=== PATIENT | female | born 1990 | race Caucasian/White ===

== ENCOUNTER 2023-05-20 17:31 | Emergency (ER) | payer OTHER, SELFPAY ==
[2023-05-20 17:48] VITALS: BP 137/82
[2023-05-20 18:17] LABS: % Basophils 0.7 % (0-2); % Eosinophils 3.7 % (0-6); % Immature Granulocytes 0.2 % (0-0.5); % Lymphocytes 27.6 % (20.5-51.1); % Neutrophils 59.8 % (42.2-75.2); Absolute Basophils 0.1 10^3/uL (0-0.2); Absolute Eosinophils 0.4 10^3/uL (0-0.7); Absolute Lymphocytes 2.6 10^3/uL (1.2-3.4); Absolute Monocytes 0.8 10^3/uL (0.1-0.6); Absolute Neutrophils 5.7 10^3/uL (1.4-6.5); Hemoglobin 12.2 g/dL (12.0-16.0); Mean Corp Hgb Conc. 33.9 g/dL (33.0-37.0); Mean Corpuscular Hgb 27.9 pg (27.0-31.0); Mean Corpuscular Volume 82.4 fL (81.0-99.0); Mean Platelet Volume 13.1 fL (7.4-10.4); Nucleated Red Blood Cells % 0 %; Platelet Count 200 10^3/uL (130-400); Red Blood Cell Count 4.37 10^6/uL (4.20-5.40); Red Cell Dist. Width 12.7 % (11.5-14.5); White Blood Cell Count 9.5 10^3/uL (4.8-10.8)
[2023-05-20 18:23] LABS: ALT (SGPT) 44 U/L (0-35); AST (SGOT) 32 U/L (14-36); Albumin 4.5 g/dl (3.5-5.0); Alkaline Phosphatase 82 U/L (38-126); Blood Urea Nitrogen 13 mg/dl (7-17); Calcium 9.6 mg/dl (8.4-10.2); Carbon Dioxide 26 mmol/L (22-30); Chloride 104 mmol/L (98-107); Glucose 99 mg/dl (70-99); Lipase 159 U/L (23-300); Potassium 4.2 mmol/L (3.5-5.1); Sodium 136 mmol/L (135-145); Total Bilirubin 0.4 mg/dl (0.2-1.3); Total Protein 7.7 g/dl (6.3-8.2); eGFR > 60.00
[2023-05-20 18:35] LABS: Troponin I < 0.012 ng/ml
[2023-05-20 20:44] VITALS: BP 111/72
--- NOTE | 2023-05-20 21:45 | ED.GENMED ---
History of Present Illness
General
Chief Complaint: Chest Pain
Source: patient
Exam Limitations: none
Time Seen by Provider: 05/20/23 20:15
Travel History
Have you had any contact with someone who has COVID-19?: No
Do you have any symptoms of coronavirus? Fever > 100 degrees, chills, cough, shortness of breath, sore throat, loss of taste or smell, muscle aches, or headache?: No
History of Present Illness
History of Present Illness:
33-year-old female who presents with pain that has been recurrent over 2 years in her left chest. She states this just left lateral of her sternum. She states it does not happen with exertion but commonly will happen at night or at random times.
She states it comes and goes. She called her primary for an appointment was told to go to urgent care. Urgent care told her they could not do anything for her. Patient seemed to think it may be GI related. She states it happened once while in
[place] and she admits she had been drinking margaritas. She does take Pepcid intermittently as needed. Patient states, she gets a fullness in her throat. She denies shortness of breath. No leg swelling. Again symptoms began 2 years ago and
are intermittent.
Past History
Past History
ED Past Medical History: Asthma
ED Past Surgical History: Other (wisdom teeth)
Social History
Tobacco: Non-smoker
Alcohol: None
Drug: None
Personal:
Living: with family
Employment: Employed
Family History
Family History: Other
Phy Exam
Physical Exam
Physical Exam:
CONSTITUTIONAL Patient alert and oriented to person, place and time. Well-appearing. Vital signs reviewed.
HEAD atraumatic, normocephalic.
EYES eyelids normal to inspection, Pupils equally round and reactive to light, Extraocular muscles intact, Conjunctiva normal, Sclera normal.
NECK normal range of motion, Trachea midline, no jugular venous distention.
RESPIRATORY CHEST No respiratory distress noted, Chest expansion equal, Bilateral breath sounds clear.
CARDIOVASCULAR regular rate and rhythm, Heart sounds normal.
ABDOMEN abdomen nontender, Bowel sounds normal. No distention.
BACK normal inspection, no obvious deformities
UPPER EXTREMITY range of motion normal, Motor strength normal, no cyanosis, no edema.
LOWER EXTREMITY range of motion normal, Motor strength normal, no cyanosis, no edema.
NEURO Speech normal, No focal motor deficits, Andrew coma scale 15, Memory normal, Cranial Nerves intact to screening exam.
SKIN skin warm, dry, and normal in color.
PSYCHIATRIC patient oriented to person place and time, Normal affect.
Scores
Heart Score for Chest Pain Patients
STEMI patient?: No
History: Slightly or Non-Suspicious
ECG: Normal
Age: </= 45 years
Risk Factors: No Risk Factors
Troponin: </= Normal Limit
Heart Score for Chest Pain Patients: 0
Heart Score Risk: 2.5% MACE over next 6 weeks
PERC Rule Criteria
Age <50 years: Yes
HR <100 bpm: Yes
Room air oxygen sat >94%: Yes
History of DVT or PE: No
Recent trauma or surgery: No
Hemoptysis: No
Exogenous estrogen: No
Clinical signs suggestive of DVT: No
: No
Considered low risk for PE: Yes
PERC Score: 0
PE can be excluded by PERC: Yes
Course
Orders/Labs/Results
Orders:
Orders
05/20/23 17:41
Electrocardiogram (*1) Urgent
Reason for Study: Chest Pain
EKG- Treatment ONCE
05/20/23 17:56
Complete Blood Count/With Diff Urgent
Comprehensive Metabolic Panel Urgent
Lipase Urgent
Troponin I Urgent
05/20/23 20:15
CR Chest - 2 Views Urgent
Comment:
Reason For Exam: cp
Abnormal Lab Results
05/20/23
17:56
Hct 36.0 L %
(37.0-47.0)
MPV 13.1 H fL
(7.4-10.4)
Absolute Monos (auto) 0.8 H 10^3/uL
(0.1-0.6)
ALT 44 H U/L
(0-35)
05/20/23 17:56
05/20/23 17:56
Vital Signs
Initial and Last Documented VS:
Initial Vital Signs
Temp Pulse Resp BP Pulse Ox
98.4 F 78 20 137/82 98
05/20/23 17:48 05/20/23 17:48 05/20/23 17:48 05/20/23 17:48 05/20/23 17:48
Last Documented Vital Signs
Temp Pulse Resp BP Pulse Ox
98.4 F 77 15 111/72 98
05/20/23 17:48 05/20/23 21:15 05/20/23 21:15 05/20/23 20:44 05/20/23 17:48
MDM/Problems Addressed
MDM/Problems Addressed:
Chest pain, possible reflux disease
*Radiology
Radiology exam reviewed: all reviewed NAD by ED Provider
*Pulse Oximetry
Patient hypoxic: no
*EKG
Interpreted by ED Provider?: Yes
Interpretation: normal
Rate: normal
Hooks: normal axis
Interval: normal interval
QRS Pattern: normal QRS
Ischemia: no ischemia
*Epic [facility] Analyst Interpretation
Rate: normal
Interpretation: normal
Rhythm: sinus
*Critical Care Note
Total Time (30-74mins, 75-104mins- exclusive of procedures): Not Applicable
Data Reviewed
Source: patient
Further Testing Considered But Not Given:
Consider D-dimer but no clinical risks
Patient Management
Escalation/DeEscalation of care consider admission/obs:
Patient appears quite well. Symptoms for 2 years. Question whether this could be GI related. Recommended bland diet for the next 3 weeks and will initiate PPI. Outpatient follow-up PCP and GI recommended. Her symptoms are not exertional. Do
not suspect ACS. No clinical concern for PE
ED Attending Note
-
Portions of this chart may have been created with voice recognition software.� Occasional wrong word or��sound alike� substitutions may have occurred due to the inherent limitations of voice recognition software.
Discharge Plan
Departure
Patient Disposition: Home (Routine Discharge)
Date of Disposition: 05/20/23
Time of Disposition: 22:20
Patient with high blood pressure during this ER visit?: No
Discharge Problem:
Chest pain
Instructions: Chest Pain PCP Follow Up
Prescriptions:
New
pantoprazole [Protonix] 40 mg tablet,delayed release (DR/EC)
40 mg PO DAILY Qty: 30 0RF
Rx Instructions:
Please take 30 minutes prior to eating or drinking anything in the morning.
No Action
[facility] cmb#[id number]-ferrous fumarate-FA [] 1 EACH tablet
1 ea PO DAILY
Albuterol Sulfate Inhalant Solution:
1 puff PO Q4HPRN PRN (Reason: sob)
ibuprofen 600 MG tablet
600 mg PO Q4HPRN PRN (Reason: moderate pain/cramps) 0RF
Referrals:
Augustus Meade DO [Family Provider] -
Activity Restrictions/Additional Instructions:
Please stick to a bland diet. Please see your doctor next 3 to 5 days for follow-up and reevaluation. If symptoms persist, further workup by gastroenterology and/or cardiology may be necessary.
Interventions
Interventions:
*Risk Screen - Suicide Last Done: 05/20/23 21:27
*General Assessment Last Done: 05/20/23 21:27
*Neglect/Abuse Screening Last Done: 05/20/23 21:27
ED- Fall Risk Assessment Last Done: 05/20/23 21:27
ED- Cardiac Assessment Last Done: 05/20/23 21:27
[2023-05-20 22:00] VITALS: BP 111/74
== END 2023-05-20 22:42 | disposition home or self-care (01) ==
LOC: EMR 17:31
PROVIDERS: Emergency Medicine; EMERGENCY PHYSICIAN Emergency Medicine; FAMILY PHYSICIAN Family Medicine
DX: R07.89 Other chest pain (principal)
CPT/HCPCS: 99285; 71046; 80053; 83690; 84484; 85025; 93005